=== PATIENT | male | born 2000 | race Hispanic/Latino ===

== ENCOUNTER 2021-02-20 10:45 | Emergency (ER) | payer SELFPAY ==
[~2021-02-20] VITALS: Ht 157.5 cm; Wt 79.0 kg
[~2021-02-20 10:45] MED LIST: BENADRYL A12.5 MG/1 OR; CORTISPORIN OTI10 M1 OT; NO HOME MEDS; TYLENOL & COD12.5 ML OR; ZITHROMAX250 MG OR
[2021-02-20] MEDS ORDERED: ONDANSETRON4 MG PO (12:11)
[2021-02-20 12:32] VITALS: BP 146/64
== END 2021-02-20 12:32 | disposition home or self-care (01) | DRG 392 ==
LOC: ED 10:45
DX: K52.9 Noninfective gastroenteritis and colitis, unspecified (principal)

== ENCOUNTER 2022-06-24 06:36 | Emergency (ER) | payer SELFPAY ==
[~2022-06-24] VITALS: Ht 157.5 cm; Wt 86.6 kg
[~2022-06-24 06:36] MED LIST changes: +ONDANSETRON4 MG PO
[2022-06-24 07:45] LABS: URINE BILIRUBIN - DIPSTICK NEGATIVE (NEGATIVE); URINE BLOOD DIPSTICK NEGATIVE (NEGATIVE); URINE COLOR YELLOW; URINE GLUCOSE - DIPSTICK NEGATIVE (NEGATIVE); URINE KETONE NEGATIVE (NEGATIVE); URINE LEUK ESTERASE NEGATIVE (NEGATIVE); URINE PROTEIN - DIPSTICK NEGATIVE (NEG-TRACE); URINE SPECIFIC GRAVITY <=1.005; URINE UROBILINOGEN - DIPSTICK 0.2 E.U./dL (0.2)
[2022-06-24 07:54] LABS: URINE NITRITE - DIPSTICK NEGATIVE (Negative)
[2022-06-24 07:55] LABS: ALBUMIN 4.7 g/dL (3.2-5.0); ALKALINE PHOSPHATASE 81 u/l (38-126); BILIRUBIN, TOTAL 0.9 mg/dL (0.0-1.4); BUN 11 mg/dL (9-20); BUN/CREATININE RATIO 17 (12-20 (CALC)); CHLORIDE 106 mmol/l (95-108); CREATININE 0.6 mg/dL (0.7-1.3); GFR FOR AFR.AMER. > 60 ML/MIN (>=60 (CALC)); GFR OTHER RACES > 60 ML/MIN (>=60 (CALC)); LIPASE 46 u/l (23-300); POTASSIUM 4.2 mmol/l (3.5-5.1); SGOT/AST 29 u/l (17-59); SODIUM 141 mmol/l (137-146)
[2022-06-24 07:58] LABS: BASO% 0.4 % (0-3); EOS% 3.4 % (0-8); HEMATOCRIT 43.2 % (39.0-50.0); HEMOGLOBIN 14.9 g/dl (14.0-18.0); IMMATURE GRANULOCYTES 0.6 % (0.0-5.0); MEAN CORPUSCULAR HGB 29.9 pG CALC (26.0-32.0); MEAN CORPUSCULAR HGB CONC 34.5 g/dL CAL (32.0-36.0); MONO% 10.3 % (2-13); NEUT# 2.6 thou/uL (1.82-7.42); NEUT% 51.3 % (42-76); RED BLOOD COUNT 4.99 mill/uL (4.70-6.10); RED CELL DISTRI WIDTH 12.8 % (11.5-15.5)
[2022-06-24 07:59] LABS: MEAN CELL VOLUME 86.6 fL CALC (80.0-100.0)
[2022-06-24 08:06] LABS: ANION GAP 11 (6-22 (CALC)); CARBON DIOXIDE 28 mmol/l (22-30)
[2022-06-24] MEDS ORDERED: MIRALAX17 GM PO (09:04)
[2022-06-24 09:11] VITALS: BP 122/70
== END 2022-06-24 09:24 | disposition home or self-care (01) | DRG 392 ==
LOC: ED 06:36
PROVIDERS: Family Medicine
DX: K59.00 Constipation, unspecified (principal); R10.9 Unspecified abdominal pain

== ENCOUNTER 2024-09-07 11:06 | Emergency (ER) | payer OTHER ==
[~2024-09-07] VITALS: Ht 157.5 cm; Wt 72.0 kg
[2024-09-07] VITALS (11 sets, daily range): BP systolic 108–128; BP diastolic 62–80
[~2024-09-07 11:06] MED LIST changes: +MIRALAX17 GM PO
[2024-09-07] MEDS ORDERED: KETOROLAC TROMETHAMINE 15 MG/ML SDV IV ONE (11:25)
[2024-09-07 11:52] LABS: BASO% 0.3 % (0-3); HEMATOCRIT 42.5 % (39.0-50.0); HEMOGLOBIN 14.5 g/dl (14.0-18.0); IMMATURE GRANULOCYTES 0.3 % (0.0-5.0); MEAN CORPUSCULAR HGB 29.4 pG CALC (26.0-32.0); MEAN CORPUSCULAR HGB CONC 34.1 g/dL CAL (32.0-36.0); MONO% 18.3 % (2-13); NEUT# 1.97 thou/uL (1.82-7.42); NEUT% 60.1 % (42-76); RED BLOOD COUNT 4.94 mill/uL (4.70-6.10); RED CELL DISTRI WIDTH 12.4 % (11.5-15.5)
[2024-09-07 12:05] LABS: ALBUMIN 4.6 g/dL (3.2-5.0); CREATININE 0.8 mg/dL (0.7-1.3); POTASSIUM 3.7 mmol/l (3.5-5.1); TOTAL PROTEIN 7.9 g/dL (6.3-8.2)
[2024-09-07 12:10] LABS: BILIRUBIN, TOTAL 1.7 mg/dL (0.2-1.3)
[2024-09-07 13:01] LABS: URINE BILIRUBIN - DIPSTICK Negative (NEGATIVE); URINE BLOOD DIPSTICK Trace-intact (NEGATIVE); URINE GLUCOSE - DIPSTICK Negative (NEGATIVE); URINE KETONE Negative (NEGATIVE); URINE LEUK ESTERASE Negative (NEGATIVE); URINE NITRITE - DIPSTICK Negative (Negative); URINE PROTEIN - DIPSTICK Negative (NEG-TRACE); URINE SPECIFIC GRAVITY 1.015; URINE UROBILINOGEN - DIPSTICK 0.2 E.U./dL (0.2)
[2024-09-07 13:36] LABS: URINE COLOR Yellow
== END 2024-09-07 14:27 | disposition home or self-care (01) | DRG 392 ==
LOC: ED 11:06
PROVIDERS: Family Medicine
DX: R10.33 Periumbilical pain (principal)
CPT/HCPCS: J1885; Q9967